=== PATIENT | male | born 1995 | race Caucasian/White ===

== ENCOUNTER 2016-11-05 11:24 | Emergency (ER) | payer OTHER, BC ==
[~2016-11-05] VITALS: Wt 113.4 kg
[~2016-11-05 11:24] MED LIST: AUGMENTIN 875 M1 TAB PO; CIPRO500 MG PO; CLARITIN10 MG PO; DESYREL100 MG; GEODON60 MG; MELATONIN3 MG PO; MOTRIN400 MG PO; MOTRIN800 MG PO
[2016-11-05 11:32] VITALS: BP 148/78
[2016-11-05 12:17] LABS: BILIRUBIN NEGATIVE (NEGATIVE); BLOOD NEGATIVE (NEGATIVE); CLARITY CLEAR (CLEAR); COLOR YELLOW (YELLOW); GLUCOSE NEGATIVE (NEGATIVE); KETONE NEGATIVE (NEGATIVE); LEUKO ESTERASE NEGATIVE (NEGATIVE); NITRITE NEGATIVE (NEGATIVE); PROTEIN NEGATIVE (NEGATIVE)
[2016-11-05 12:31] LABS: BACTERIA TRACE; MUCOUS TRACE
[2016-11-05] MEDS ORDERED: CYCLOBENZAPRINE10 MG PO (13:32)
[2016-11-05] MEDS ORDERED: NAPROSYN500 MG PO (13:32)
== END 2016-11-05 13:40 | disposition home or self-care (01) ==
LOC: ED 11:24
PROVIDERS: Nurse Practitioner Family
DX: N50.811 Right testicular pain (principal); Z88.1 Allergy status to other antibiotic agents

== ENCOUNTER 2018-12-22 08:49 | Emergency (ER) | payer OTHER, BC ==
[~2018-12-22] VITALS: Ht 175.2 cm; Wt 111.1 kg
[~2018-12-22 08:49] MED LIST changes: +CYCLOBENZAPRINE10 MG PO; +NAPROSYN500 MG PO
[2018-12-22 08:50] VITALS: BP 133/85
[2018-12-22] MEDS ORDERED: AUGMENTIN 875875 MG PO (09:26)
== END 2018-12-22 09:31 | disposition home or self-care (01) ==
LOC: ED 08:49
DX: S51.831A Puncture wound without foreign body of right forearm, initial encounter (principal); Z88.1 Allergy status to other antibiotic agents; Z79.899 Other long term (current) drug therapy; Y04.1XXA Assault by human bite, initial encounter; Y93.89 Activity, other specified; Y92.89 Other specified places as the place of occurrence of the external cause; Y99.0 Civilian activity done for income or pay